=== PATIENT | female | born 1945 | race Caucasian/White ===

== ENCOUNTER 2021-01-04 08:18 | Outpatient (RCR) | payer MEDICARE, BC | END 2021-01-06 13:56 | LOC: OPPGERO 08:18 | DX: F33.0 Major depressive disorder, recurrent, mild (principal); Z98.890 Other specified postprocedural states; Z63.4 Disappearance and death of family member; Z63.5 Disruption of family by separation and divorce ==

== ENCOUNTER 2021-01-07 09:54 | Outpatient (RCR) | payer MEDICARE, BC | END 2021-02-06 17:59 | disposition home or self-care (01) | LOC: OPPGERO 09:54 | DX: F33.0 Major depressive disorder, recurrent, mild (principal); Z63.5 Disruption of family by separation and divorce; Z63.4 Disappearance and death of family member; Z98.890 Other specified postprocedural states ==